=== PATIENT | female | born 1965 ===

== ENCOUNTER 2017-02-12 02:07 | Observation (INO) | payer SELFPAY ==
[2017-02-12 02:13] VITALS: BMI 31.8
[2017-02-12] MEDS ORDERED: Sodium Chloride 0.9% 1,000 ML IV STA (02:14)
--- NOTE | 2017-02-12 02:36 | ED PDOC ---
HPI: Psych/Substance Abuse Time Seen by Provider: 02/12/17 02:11 Chief Complaint (Nursing): Substance Abuse Chief Complaint (Provider): Substance abuse History/Exam Limitations: no limitations Modifying Factor(s): Narcotics Additional Complaint(s): 51yo female, brought to ED by EMS for evaluation after patient was found overdosed on opiates at home. Per EMS, patient was given IV Narcan on field with reversal of symptoms. The patient admits to using "a bag of dope" and states she has a history of substance abuse "many years ago". Patient denies any suicidal ideation and states she was using recreationally. She currently reports feeling nauseous. No other medical complaints. Against Medical Advice - AMA Patient Left Against Medical Advice: The patient declines admission to the hospital and wishes to leave the Emergency Department. This action is against my medical advice. This decision was made with informed refusal. The patient was told that admission to the hospital is necessary. Explanation of the reasons why were discussed. The risks of leaving were explained to the patient and include, but are not limited to, worsening of known or currently unknown conditions, permanent disability and from undiagnosed or untreated conditions. The patient has the capacity to make this informed decision and understands my explanation of the current medical problem and risks of leaving. The patient voluntarily accepts these risks and signed an AMA form documenting our conversation. The patient was given the opportunity to ask questions and reconsider. The patient was encouraged to return to the Emergency Department at any time for further care. Past Medical History Reviewed: Historical Data, Nursing Documentation, Vital Signs Vital Signs: Last Vital Signs Temp 98.9 F 02/12/17 02:14 Pulse 94 H 02/12/17 02:14 Resp 18 02/12/17 02:14 BP 180/91 H 02/12/17 02:14 Pulse Ox 98 02/12/17 02:14 - Medical History PMH: No Chronic Diseases - Surgical History Surgical History: No Surg Hx - Family History Family History: States: No Known Family Hx - Social History Drugs: Opiates - Home Medications Home Medications: Ambulatory Orders Medication Instructions Recorded No Known Home Med 02/12/17 - Allergies Allergies/Adverse Reactions: Allergies Allergy/AdvReac Type Severity Reaction Status Date / Time No Known Allergies Allergy Verified 02/12/17 04:41 Review of Systems ROS Statement: Except As Marked, All Systems Reviewed And Found Negative Gastrointestinal: Positive for: Nausea Physical Exam - Reviewed Nursing Documentation Reviewed: Yes Vital Signs Reviewed: Yes - Physical Exam Appears: Positive for: No Acute Distress Head Exam: Positive for: ATRAUMATIC, NORMAL INSPECTION, NORMOCEPHALIC Skin: Positive for: Normal Color Eye Exam: Positive for: Normal appearance Neck: Positive for: Supple Cardiovascular/Chest: Positive for: Regular Rate, Rhythm Respiratory: Positive for: Normal Breath Sounds. Negative for: Respiratory Distress Gastrointestinal/Abdominal: Positive for: Normal Exam, Soft. Negative for: Tenderness Back: Positive for: Normal Inspection Extremity: Positive for: Normal ROM Neurologic/Psych: Positive for: Alert, Oriented - Laboratory Results Result Diagrams: 02/12/17 02:44 02/12/17 02:44 - ECG ECG: Positive for: Interpreted By Me, Viewed By Me ECG Rhythm: Positive for: Normal QRS, Normal ST Segment, Sinus Rhythm Rate: 87 O2 Sat by Pulse Oximetry: 98 (RA) Pulse Ox Interpretation: Normal Medical Decision Making Medical Decision Making: Time: 212 Impression: Opiate abuse Plan: -- Labs -- IV Fluids -- Zofran 4mg IV Reassess Time: 452 Patient with chest pain and plan to admit for chest pain observation discussed with patient. Currently, patient does not wish to be admitted and is electing to leave AMA. Risks of leaving AMA discussed with patient, who expressed full understanding. Final diagnosis: Opiate abuse, chest pain Scribe Attestation: Documented by Vanesa Redding acting as a scribe for Sae Shirley MD. Provider Attestation: All medical record entries made by the Scribe were at my direction and personally dictated by me. I have reviewed the chart and agree that the record accurately reflects my personal performance of the history, physical exam, medical decision making, and the department course for this patient. I have also personally directed, reviewed, and agree with the discharge instructions and disposition. Disposition - Clinical Impression Clinical Impression: Overdose of cocaine, Accidental overdose of heroin - Disposition Disposition: Against Medical Advice Disposition Time: 04:55 Condition: GUARDED
[2017-02-12 02:46] LABS: BASO # 0.1 K/uL (0.0-0.2); BASO % 0.3 % (0.0-2.0); EOS # 0.3 K/uL (0.0-0.7); EOS % 1.5 % (0.0-4.0); HEMATOCRIT 37.7 % (34.0-47.0); LYMPH # 1.9 K/uL (1.0-4.3); LYMPH % 11.1 % (20.0-40.0); MEAN CELL VOLUME 95.5 fl (81.0-99.0); MEAN CORPUSCULAR HEMOGLOBIN 30.8 pg (27.0-31.0); MEAN CORPUSCULAR HGB CONC 32.3 g/dL (33.0-37.0); MONO # 1.1 K/uL (0.0-0.8); MONO % 6.4 % (0.0-10.0); NEUT % 80.7 % (50.0-75.0); WHITE BLOOD COUNT 17.3 K/uL (4.8-10.8)
[2017-02-12 02:57] LABS: ALCOHOL SERUM 29 mg/dl (0-10); ALKALINE PHOSPHATASE 84 U/L (38-126); ALT/SGPT 38 U/L (9-52); AST/SGOT 34 U/L (14-36); BLOOD UREA NITROGEN 12 mg/dl (7-17); CALCIUM 8.4 mg/dL (8.4-10.2); CARBON DIOXIDE 22 mmol/L (22-30); CHLORIDE 104 mmol/L (98-107); GFR AFRICAN-AMERICAN > 60; GLUCOSE,RANDOM 140 mg/dL (65-105); POTASSIUM 3.4 MMOL/L (3.6-5.0); SODIUM 143 mmol/l (132-148); TOTAL PROTEIN 8.1 G/DL (6.3-8.2)
[2017-02-12 03:02] LABS: BILIRUBIN,TOTAL < 0.1 mg/dl (0.2-1.3)
[2017-02-12 03:08] VITALS: BP 121/69; RESP 22; TEMP 98
[2017-02-12 03:43] VITALS: O2SAT 98
[2017-02-12 04:13] LABS: RBC URINE 1 /hpf (0-3); URINE BACTERIA OCC (<OCC); URINE BILIRUBIN NEGATIVE (NEGATIVE); URINE BLOOD NEGATIVE (NEGATIVE); URINE COLOR YELLOW (YELLOW); URINE GLUCOSE (UA) 50 mg/dL (Normal); URINE KETONE NEGATIVE (NEGATIVE); URINE LEUKOCYTE ESTERASE NEG Leu/uL (Negative); URINE PROTEIN 30 mg/dL (NEGATIVE); URINE UROBILINOGEN 0.2-1.0 mg/dL (0.2-1.0); WBC URINE 1 /hpf (0-5)
[2017-02-12 04:56] VITALS: PULSE 87
--- NOTE | 2017-02-12 08:25 | CARD ---
APPROVED REPORT EKG Measurement Heart [id number] <Conclusion> Normal sinus rhythm Normal ECG
== END 2017-02-12 05:00 | disposition left against medical advice (07) ==
LOC: H.ER 02:07 → H.ERHOLD 04:36
PROVIDERS: ADMIT Internal Medicine; ATTEND Internal Medicine
DX: T40.5X1A Poisoning by cocaine, accidental (unintentional), initial encounter (principal); T40.1X1A Poisoning by heroin, accidental (unintentional), initial encounter; R07.9 Chest pain, unspecified; F11.10 Opioid abuse, uncomplicated
CPT/HCPCS: 80053; 81003; 81025; 84484; 85025; 93005; 99285; G0378; G0480; J2405; J7040